=== PATIENT | male | born 1975 | race African-American/Black ===

== ENCOUNTER 2017-09-24 16:35 | Inpatient (IN) | payer MEDICAID, SELFPAY ==
[2017-09-24 16:36] VITALS: BP 136/85; PULSE 87; RESP 16; TEMP 37; O2SAT 100; BMI 37.6
--- NOTE | 2017-09-24 16:59 | RAD_ITS ---
STUDY: X-RAY CHEST REASON FOR EXAM: Male, 42 years old. Medical clearance, no chest complaints TECHNIQUE: Single AP portable view of the chest. COMPARISON: None. FINDINGS: There are mild streaky fibrotic or atelectatic changes of the right lung base. There is no demonstrated pleural abnormality. Normal size heart. Normal mediastinum and michelle. Normal visualized pulmonary arteries. Normal visualized aortic arch and descending thoracic aorta. Normal visualized thoracic spine. Normal visualized ribs, clavicles, and shoulders. There is no demonstrated abnormality of the visualized soft tissue structures of the upper abdomen. RAD/Chest 1 View (Portable) IMPRESSION: Mild streaky fibrotic or atelectatic changes of the right lung base. Electronically Signed: Felipe Muñoz MD at 17:34 EDT , Service support ,
--- NOTE | 2017-09-24 17:01 | EKG12_ITS ---
Test Reason : GEN ILLNESS Blood Pressure : / mmHG Vent. Rate : 085 BPM Atrial Rate : 085 BPM P-R Int : 172 ms QRS Dur : 104 ms QT Int : 340 ms P-R-T Axes : 048 008 018 degrees QTc Int : 404 ms Normal sinus rhythm Poor R wave progression Nonspecific ST and T wave abnormality Abnormal ECG Confirmed by MANE DUKE, RUTHIE ([id number]), book or script editor BILL FERRARA ([id number]) on 09/26/2017 10:17:58 AM Referred By: CHUY/KATHI Confirmed By:RUTHIE GILLIAM MD
--- NOTE | 2017-09-24 17:06 | NURSING ---
NO OLD EKGS
[2017-09-24] MEDS: Ondansetron 4 MG/2 ML Vial IV (17:18)
[2017-09-24] MEDS: Dicyclomine 20 MG/2 ML Vial IM (17:18)
[2017-09-24 17:36] LABS: Absolute Lymphocyte Count 3.12 X10^3/ul (0.83-4.51); Absolute Neutrophil Count 3.9 X10^3/uL (2.0-7.7); Basophil# 0.02 X10^3/uL; Basophil% 0.3 % (0-1); Eosinophil# 0.11 X10^3/uL; Eosinophils% 1.5 % (0-5); Hemoglobin 11.9 g/dl (13.0-16.5); Lymphocyte # 3.12 X10^3/ul (4.0); Lymphocyte % 42.2 % (19-41); Mean Corp Hgb Conc 32.2 g/gl (32-36); Mean Corpuscular Hgb 24.2 pg (27.0-32.0); Mean Corpuscular Volume 75.4 fL (80-94); Mean Platelet Vol. 10.3 fl (6.2-12.0); Monocyte# 0.22 X10^3/uL; Neutrophil # 3.92 X10^3/uL (2.7-7.7); Neutrophil % 52.9 % (47-70); POSITIVE COUNT NO; POSITIVE DIFFERENTIAL NO; POSITIVE MORPHOLOGY NO; Platelet Count 369 K/mm3 (150-450); RBC Distribution Width CV 14.4 % (11.6-14.6); RBC Distribution Width SD 39.9 fl (35.1-43.9); Red Blood Count 4.91 M/mm3 (4.6-6.2); White Blood Count 7.4 K/mm3 (4.4-11.0)
[2017-09-24 17:51] LABS: ALB/GLOB Ratio 0.8 RATIO (0.9-2.4); AST(SGOT) 14 U/L (15-37); Alanine Aminotransfer ALT/SGPT 36 U/L (16-61); Albumin, Serum 3.9 g/dL (3.2-5.0); Alkaline Phosphatase 89 U/L (45-117); Anion Gap 9 (5-15); BUN 22 mg/dL (7-18); BUN/Creat Ratio 16.2 RATIO (10-20); Calcium,Total 9.5 mg/dL (8.5-10.1); Chloride 102 mmol/L (98-107); Creatinine, Serum 1.36 mg/dL (0.70-1.30); EST Glomerular Filtration Rate 61 mL/min (>60); Est Glom Filt Rate - Afr Amer 74 mL/min (>60); Globulin 5.2 g/dL (2.2-4.2); Glucose 267 mg/dL (74-106); Potassium 4.6 mmol/L (3.5-5.1); Protein, Total 9.1 g/dL (6.4-8.2); Sodium Level 135 mmol/L (136-145)
[2017-09-24 18:36] VITALS: RESP 16
--- NOTE | 2017-09-24 20:47 | HP.PCM_ITS ---
Problem List (1) Heroin addiction Status: Acute History of Present Illness Date of Admission: 09/24/17 Chief Complaint: heroine addiction The patient is a 41 year old male patient here for entry into the [facility] program. He has expressed interest in detoxification from heroine addiction. He has used heroine for the past seven years and has decided he is tired of it. He is anxious but denies chest pain or shortness of breath. Initial laboratory studies are unremarkable. Past Medical History Allergies shellfish derived Allergy (Verified 09/24/17 16:37) Angioedema Home Medications: Ambulatory Orders Medication Instructions Recorded Amlodipine [Norvasc] 5 mg PO DAILY 09/24/17 Citalopram [Celexa] 10 mg PO DAILY 09/24/17 Furosemide [Lasix] 40 mg PO DAILY 09/24/17 Insulin Lispro [Humalog] 40 unit SQ BID 09/24/17 Lisinopril [Zestril] 20 mg PO DAILY 09/24/17 Metformin HCl [Glucophage] 1,000 mg PO DAILY 09/24/17 Metoprolol Succinate [Toprol Xl] 50 mg PO DAILY 09/24/17 Smoking Status: Current every day smoker - *Family History Maternal History Items: No pertinent history Review of Systems Constitutional: Denies: Chills, Fever, Weight Change HEENT: Denies: Head Aches, Sinus Congestion, Sinus Drainage Cardiovascular: Denies: Chest Pain, Palpitations Respiratory: Denies: Cough, Shortness of breath at rest, Sputum production Gastrointestinal: Denies: Abdominal Pain, Nausea, Vomiting Genitourinary: Denies: Dysuria Musculoskeletal: Denies: Joint Pain, Joint Tenderness Skin: Denies: Rash, Wounds Neurological: Denies: Numbness, Tingling, Focal weakness Psychiatric: Reports: Anxiety. Denies: Depression, Homicidal Ideations, Suicidal Ideations Hematologic/ Lymphatic: Denies: Easy Bruising, Easy Bleeding VTE Information - Inpt Only VTE Present on Admission: No VTE Mechan Device Prophylaxis: None VTE Pharm Prophylaxis ordered?: Yes Patient Problems: Active and Suspected Problems Heroin addiction (Acute) - Physical Exam General: Alert, Oriented x3, Cooperative HEENT: Atraumatic, PERRLA, EOMI, Normocephalic Neck: Supple, No JVD, Negative Carotid Bruits Lungs: Clear to auscultation, Normal air movement Cardiovascular: Regular rate, No murmurs Abdomen: Bowel Sounds Present, Soft, Non Tender Extremities: No edema, Capillary Refill Less than 3 Seconds Skin: No rashes Musculoskeletal: No Tenderness to Palpation of Joints or Extremities Neurological: Neuro grossly intact Psych/Mental Status: Normal Affect, Appropriate Vital Signs Temp Pulse Resp BP Pulse Ox 98.6 F 87 16 136/85 H 100 09/24/17 16:36 09/24/17 16:36 09/24/17 18:36 09/24/17 16:36 09/24/17 16:36 Oxygen Delivery Method Room Air Weight: 270 lb Body Mass Index (BMI) 37.6 Laboratory Tests Past 24 Hrs 09/24/17 09/24/17 17:15 17:15 WBC 7.4 RBC 4.91 Hgb 11.9 L Hct 37.0 L MCV 75.4 L MCH 24.2 L MCHC 32.2 RDW 14.4 RDW Differential 39.9 Plt Count 369 MPV 10.3 Immature Gran % (Auto) 0.100 Neut % (Auto) 52.9 Lymph % (Auto) 42.2 H Terry % (Auto) 3.0 Eos % (Auto) 1.5 Baso % (Auto) 0.3 Absolute Neuts (auto) 3.9 Absolute Lymphs (auto) 3.12 Total Counted Not Reportable Sodium 135 L Potassium 4.6 Chloride 102 Carbon Dioxide 24.0 Anion Gap 9 BUN 22 H Creatinine 1.36 H Estim Creat Clear Calc 76.90 Est GFR (MDRD) Af Amer 74 Est GFR (MDRD) Non-Af 61 BUN/Creatinine Ratio 16.2 Glucose 267 H Calcium 9.5 Total Bilirubin 0.60 AST 14 L ALT 36 Alkaline Phosphatase 89 Troponin I < 0.015 Total Protein 9.1 H Albumin 3.9 Globulin 5.2 H Albumin/Globulin Ratio 0.8 L Assessment/Plan All Active Problems Heroin addiction (Acute) Plan - admit to general medical floor - consult [facility] - initiate narcotic withdrawal protocol - test for HIV and Hep B - LMWH for DVT prophylaxis - nicoderm patch q day- smoking cessation to be encouraged following heroine recovery Code Visit Inpatient E&M: 38825 Init Hosp L3
--- NOTE | 2017-09-24 20:52 | ED.VISSUMM ---
- ER Visit Summary Date of Service: 09/24/17 Chief Complaint: Opiate withdrawal History of Present Illness: The patient is a 41 M who meets criteria for opiate withdrawal. She is here with [facility] staff. He has no other symptoms other than nausea and vomiting and paresthesias, but he has a history of CHF and hypertension. Physical Examination: Not appear in acute distress. Moist mucous membranes, no obvious facial deformity No C-spine tenderness supple neck. Regular rate and rhythm without any obvious murmurs Clear lungs bilaterally speaking in full sentences without any obvious respiratory distress Abdomen soft and nontender no guarding or rebound Moves all extremities without any difficulty or pain. Skin does not show any obvious rashes or lesions, no trauma. Alert oriented ?3 with no gross focal deficit Emergency Department Course and Treatment: [Patient has an unremarkable workup and is medically cleared for detox. He received Bentyl and Zofran.] Disposition: [Admit to the hospital in stable condition] Impression: [Opiate withdrawal requesting detox] This note was generated with [employer] dictation software. It may contain incorrect words, spelling, and punctuation that were not noted in review of the chart prior to signing ED Disposition - Plan for ED Patient: Chief Complaint: General Illness Referrals: [facility] Doctor,Out of [Primary Care Provider] -
[2017-09-24 21:29] VITALS: BMI 36.8; BMI 36.9
[2017-09-24 21:52] VITALS: BP 133/88; PULSE 93; RESP 16; TEMP 37.4
[2017-09-24 22:00] LABS: Bedside Glucose 226 mg/dL (70-110)
[2017-09-24] MEDS: Insulin Lispro 100 UNIT/ML INSULN.PEN SC (22:09)
[2017-09-24] MEDS: cloNIDine HCl 0.1 MG Tablet PO (22:09)
[2017-09-24] MEDS: Buprenorphine HCl 2 MG TAB.SUBL SL (22:09)
[2017-09-24] MEDS: chlordiazePOXIDE 25 MG Capsule PO (22:09)
[2017-09-24 23:11] LABS: HIV - WCH Non-Reactive (Nonreactive)
[2017-09-25] VITALS (7 sets, daily range): BP systolic 112–132; BP diastolic 73–83; PULSE 83–97; RESP 16–18; TEMP 36.2–37.6; O2SAT 100
[2017-09-25] MEDS: Pramipexole Di-HCl 0.25 MG Tablet PO (02:10)
[2017-09-25] MEDS: cloNIDine HCl 0.1 MG Tablet PO ×2 (02:10→21:25)
[2017-09-25] MEDS: Ondansetron ODT 4 MG Tablet 8 MG PO ×2 (02:10→09:50)
[2017-09-25] MEDS: Buprenorphine HCl 2 MG TAB.SUBL SL ×3 (05:52→21:17)
[2017-09-25 06:27] LABS: Anion Gap 11 (5-15); BUN 22 mg/dL (7-18); BUN/Creat Ratio 18.5 RATIO (10-20); Calcium,Total 9.7 mg/dL (8.5-10.1); Chloride 102 mmol/L (98-107); Creatinine, Serum 1.19 mg/dL (0.70-1.30); EST Glomerular Filtration Rate 72 mL/min (>60); Est Glom Filt Rate - Afr Amer 87 mL/min (>60); Estimated Creatinine Clearance 87.89 ml/min; Glucose 260 mg/dL (74-106); Potassium 4.5 mmol/L (3.5-5.1); Sodium Level 137 mmol/L (136-145)
[2017-09-25] MEDS: Insulin Lispro 100 UNIT/ML INSULN.PEN SC ×4 (07:15→21:16)
[2017-09-25 07:16] LABS: Bedside Glucose 284 mg/dL (70-110)
--- NOTE | 2017-09-25 09:26 | PCM.PROGNOTE ---
Patient Problems: Active and Suspected Problems Heroin addiction (Acute) Subjective: Chief complaint: Follow-up after admission for opioid withdrawal for medical stabilization. Patient seen and examined. No acute events overnight. He did report some improvement of his anxiety and restlessness. He reported mild abdominal cramps. Denied nausea vomiting. Denies constipation or diarrhea. Denied chest pain or shortness of breath. His vital signs are stable. - Physical Exam General: Alert, Oriented x3, Cooperative, No apparent distress HEENT: Atraumatic, PERRLA, EOMI, Normocephalic Oral: Moist Mucosa, No Gingival or Mucosal Lesions/ Ulcerations Neck: Supple, No JVD, Negative Carotid Bruits, Trachea Midline, Thyroid Normal Size and Texture Lungs: Clear to auscultation, No rhonchi, No wheeze, No rales, Diminished Cardiovascular: Regular rate, Regular Rhythm, Normal S1, Normal S2 Abdomen: Bowel Sounds Present, Soft, Non Tender, Non-Distended, No Hepato-splenomegaly Extremities: No clubbing, No cyanosis, No edema Skin: No rashes, No breakdown Lymphatic: No Cervical, Supraclavicular, or Inguinal Adenopathy Neurological: Cranial nerves II-XII grossly intact, Motor Exam 5/5 strength throughout Psych/Mental Status: Normal Affect, Appropriate, Alert and oriented to time, place, person, mood and affect Vital Signs Temp Pulse Resp BP Pulse Ox 98.7 F 87 16 130/73 H 100 09/25/17 05:56 09/25/17 05:56 09/25/17 05:56 09/25/17 05:56 09/24/17 16:36 Weight: 264 lb 4 oz Body Mass Index (BMI) 36.8 Intake and Output for Last 24 Hours 09/23/17 09/24/17 09/25/17 23:59 23:59 23:59 Intake Total 240 / 240 480 / 480 Balance 240 / 240 480 / 480 Laboratory Tests Past 24 Hrs 09/25/17 05:35 Sodium 137 Potassium 4.5 Chloride 102 Carbon Dioxide 24.0 Anion Gap 11 BUN 22 H Creatinine 1.19 Estim Creat Clear Calc 87.89 Est GFR (MDRD) Af Amer 87 Est GFR (MDRD) Non-Af 72 BUN/Creatinine Ratio 18.5 Glucose 260 H Calcium 9.7 POC Glucose 09/25/17 09/24/17 07:10 21:48 POC Glucose 284 H 226 H Medical Necessity - Tobacco Use Smoking Status: Current every day smoker Tobacco Use: Cigarettes Assessment/Plan All Active Problems Heroin addiction (Acute) This is a 41 years old male patient admitted because of acute opioid withdrawal for medical stabilization. #1 acute opiate withdrawal: He is on [facility] protocol with tapering course of Subutex, as needed Bentyl, Vistaril, Zofran and Mirapex. His vital signs stable. Patient reported some improvement of his symptoms. His routine blood work was remarkable for creatinine 4.26 on admission and it came down to 1.19 this morning, improved. His troponin is negative. Plan to potassium treatment. #2 type 2 diabetes mellitus: Change diet to ADA diet, continue Accu-Cheks, insulin sliding scale, continue metformin. #3 hypertension: Blood pressure stable, continue Norvasc, Catapres, lisinopril and metoprolol. #4 chronic congestive heart failure, unspecified: Patient is not sure what type of heart failure he has. He denies history of CAD, stents or CABG surgery in the past. At this time, CHF is clinically stable, compensated. Continue Lasix, lisinopril and metoprolol. #5 DVT prophylaxis: Subcu Lovenox. This note was generated with [employer] dictation software. It may contain incorrect words, spelling, and punctuation that were not noted in checking the note before signing. Code Visit Inpatient E&M: 08880 Subs Hosp L2
--- NOTE | 2017-09-25 09:33 | PN_ITS ---
Patient Problems: Active and Suspected Problems Heroin addiction (Acute) Subjective: Chief complaint: Follow-up after admission for opioid withdrawal for medical stabilization. Patient seen and examined. No acute events overnight. He did report some improvement of his anxiety and restlessness. He reported mild abdominal cramps. Denied nausea vomiting. Denies constipation or diarrhea. Denied chest pain or shortness of breath. His vital signs are stable. - Physical Exam General: Alert, Oriented x3, Cooperative, No apparent distress HEENT: Atraumatic, PERRLA, EOMI, Normocephalic Oral: Moist Mucosa, No Gingival or Mucosal Lesions/ Ulcerations Neck: Supple, No JVD, Negative Carotid Bruits, Trachea Midline, Thyroid Normal Size and Texture Lungs: Clear to auscultation, No rhonchi, No wheeze, No rales, Diminished Cardiovascular: Regular rate, Regular Rhythm, Normal S1, Normal S2 Abdomen: Bowel Sounds Present, Soft, Non Tender, Non-Distended, No Hepato- splenomegaly Extremities: No clubbing, No cyanosis, No edema Skin: No rashes, No breakdown Lymphatic: No Cervical, Supraclavicular, or Inguinal Adenopathy Neurological: Cranial nerves II-XII grossly intact, Motor Exam 5/5 strength throughout Psych/Mental Status: Normal Affect, Appropriate, Alert and oriented to time, place, person, mood and affect Vital Signs Temp Pulse Resp BP Pulse Ox 98.7 F 87 16 130/73 H 100 09/25/17 05:56 09/25/17 05:56 09/25/17 05:56 09/25/17 05:56 09/24/17 16:36 Weight: 264 lb 4 oz Body Mass Index (BMI) 36.8 Intake and Output for Last 24 Hours 09/23/17 09/24/17 09/25/17 23:59 23:59 23:59 Intake Total 240 / 240 480 / 480 Balance 240 / 240 480 / 480 Laboratory Tests Past 24 Hrs 09/25/17 05:35 Sodium 137 Potassium 4.5 Chloride 102 Carbon Dioxide 24.0 Anion Gap 11 BUN 22 H Creatinine 1.19 Estim Creat Clear Calc 87.89 Est GFR (MDRD) Af Amer 87 Est GFR (MDRD) Non-Af 72 BUN/Creatinine Ratio 18.5 Glucose 260 H Calcium 9.7 POC Glucose 09/25/17 09/24/17 07:10 21:48 POC Glucose 284 H 226 H Medical Necessity - Tobacco Use Smoking Status: Current every day smoker Tobacco Use: Cigarettes Assessment/Plan All Active Problems Heroin addiction (Acute) This is a 41 years old male patient admitted because of acute opioid withdrawal for medical stabilization. #1 acute opiate withdrawal: He is on [facility] protocol with tapering course of Subutex, as needed Bentyl, Vistaril, Zofran and Mirapex. His vital signs stable. Patient reported some improvement of his symptoms. His routine blood work was remarkable for creatinine 4.26 on admission and it came down to 1.19 this morning, improved. His troponin is negative. Plan to potassium treatment. #2 type 2 diabetes mellitus: Change diet to ADA diet, continue Accu-Cheks, insulin sliding scale, continue metformin. #3 hypertension: Blood pressure stable, continue Norvasc, Catapres, lisinopril and metoprolol. #4 chronic congestive heart failure, unspecified: Patient is not sure what type of heart failure he has. He denies history of CAD, stents or CABG surgery in the past. At this time, CHF is clinically stable, compensated. Continue Lasix , lisinopril and metoprolol. #5 DVT prophylaxis: Subcu Lovenox. This note was generated with [employer] dictation software. It may contain incorrect words, spelling, and punctuation that were not noted in checking the note before signing. Code Visit Inpatient E&M: 02215 Subs Hosp L2
[2017-09-25] MEDS: Metoprolol(XL)Succ 50 MG Tablet PO (09:50)
[2017-09-25] MEDS: Lisinopril 20 MG Tablet PO (09:50)
[2017-09-25] MEDS: Citalopram 10 MG Tablet PO (09:50)
[2017-09-25] MEDS: amLODIPine 5 MG Tablet PO (09:50)
[2017-09-25] MEDS: metFORMIN HCl 1,000 MG Tablet 1000 MG PO (09:50)
[2017-09-25] MEDS: Furosemide 40 MG Tablet PO (09:50)
[2017-09-25] MEDS: Enoxaparin 40 MG/0.4 ML Syringe SC (09:51)
[2017-09-25 12:05] LABS: Bedside Glucose 334 mg/dL (70-110)
[2017-09-25 17:05] LABS: Bedside Glucose 232 mg/dL (70-110)
[2017-09-25 21:26] LABS: Bedside Glucose 243 mg/dL (70-110)
[2017-09-26 02:00] VITALS: RESP 16
[2017-09-26 05:27] VITALS: RESP 16
[2017-09-26] MEDS: Buprenorphine HCl 2 MG TAB.SUBL SL ×2 (06:29→13:53)
[2017-09-26] MEDS: Insulin Lispro 100 UNIT/ML INSULN.PEN SC ×4 (06:32→22:19)
[2017-09-26 06:34] VITALS: BP 121/70; PULSE 82; RESP 16; TEMP 36.6; O2SAT 100
[2017-09-26 06:41] LABS: Bedside Glucose 236 mg/dL (70-110)
[2017-09-26] MEDS: metFORMIN HCl 1,000 MG Tablet 1000 MG PO ×2 (07:46→17:28)
--- NOTE | 2017-09-26 09:03 | PCM.PROGNOTE ---
Patient Problems: Active and Suspected Problems Heroin addiction (Acute) Subjective: Chief complaint: Follow-up after admission for opiate withdrawal for medical stabilization. Patient seen and examined. No acute events overnight. He denied any significant complaints, feeling better, less anxiety and restlessness. Denied abdominal pain, cramps or diarrhea. Denied chest pain or shortness of breath. Vital signs are stable. - Physical Exam General: Alert, Oriented x3, Cooperative, No apparent distress HEENT: Atraumatic, PERRLA, EOMI, Normocephalic Oral: Moist Mucosa, No Gingival or Mucosal Lesions/ Ulcerations Neck: Supple, No JVD, Negative Carotid Bruits, Trachea Midline, Thyroid Normal Size and Texture Lungs: Clear to auscultation, Normal air movement, No rhonchi, No wheeze, No rales Cardiovascular: Regular rate, Regular Rhythm, Normal S1, Normal S2, PMI Normal Abdomen: Bowel Sounds Present, Soft, Non Tender, Non-Distended, No Hepato-splenomegaly Extremities: No clubbing, No cyanosis, No edema Skin: No rashes, No breakdown Lymphatic: No Cervical, Supraclavicular, or Inguinal Adenopathy Neurological: Cranial nerves II-XII grossly intact, Neuro grossly intact Psych/Mental Status: Normal Affect, Appropriate, Alert and oriented to time, place, person, mood and affect Vital Signs Temp Pulse Resp BP Pulse Ox 97.9 F 82 16 121/70 H 100 09/26/17 06:34 09/26/17 06:34 09/26/17 06:34 09/26/17 06:34 09/26/17 06:34 Oxygen Delivery Method Room Air Weight: 264 lb 4.007 oz Body Mass Index (BMI) 36.8 Intake and Output for Last 24 Hours 09/24/17 09/25/17 09/26/17 23:59 23:59 23:59 Intake Total 240 / 240 1780 / 1780 680 / 680 Balance 240 / 240 1780 / 1780 680 / 680 POC Glucose 09/26/17 09/25/17 09/25/17 06:31 21:15 16:56 POC Glucose 236 H 243 H 232 H 09/25/17 12:01 POC Glucose 334 H Medical Necessity - Tobacco Use Smoking Status: Current every day smoker Tobacco Use: Cigarettes Assessment/Plan All Active Problems Heroin addiction (Acute) This is a 41 years old male patient admitted because of acute opioid withdrawal for medical stabilization. #1 acute opiate withdrawal: Symptoms improved, less anxious and restless. He is on [facility] protocol with tapering course of Subutex, as needed Bentyl, Vistaril, Zofran and Mirapex. His vital signs stable. Plan to continue same treatment, DC home tomorrow. #2 type 2 diabetes mellitus: Blood sugar has been in the range of 200, under reasonable control, continue ADA diet, continue Accu-Cheks, insulin sliding scale, continue metformin. #3 hypertension: Blood pressure stable, continue Norvasc, Catapres, lisinopril and metoprolol. #4 chronic congestive heart failure, unspecified: Patient is not sure what type of heart failure he has. He denies history of CAD, stents or CABG surgery in the past. At this time, CHF is clinically stable, compensated. Continue Lasix, lisinopril and metoprolol. #5 DVT prophylaxis: Subcu Lovenox. This note was generated with [employer] dictation software. It may contain incorrect words, spelling, and punctuation that were not noted in checking the note before signing. Code Visit Inpatient E&M: 80316 Subs Hosp L2
--- NOTE | 2017-09-26 09:06 | PN_ITS ---
Patient Problems: Active and Suspected Problems Heroin addiction (Acute) Subjective: Chief complaint: Follow-up after admission for opiate withdrawal for medical stabilization. Patient seen and examined. No acute events overnight. He denied any significant complaints, feeling better, less anxiety and restlessness. Denied abdominal pain, cramps or diarrhea. Denied chest pain or shortness of breath. Vital signs are stable. - Physical Exam General: Alert, Oriented x3, Cooperative, No apparent distress HEENT: Atraumatic, PERRLA, EOMI, Normocephalic Oral: Moist Mucosa, No Gingival or Mucosal Lesions/ Ulcerations Neck: Supple, No JVD, Negative Carotid Bruits, Trachea Midline, Thyroid Normal Size and Texture Lungs: Clear to auscultation, Normal air movement, No rhonchi, No wheeze, No rales Cardiovascular: Regular rate, Regular Rhythm, Normal S1, Normal S2, PMI Normal Abdomen: Bowel Sounds Present, Soft, Non Tender, Non-Distended, No Hepato- splenomegaly Extremities: No clubbing, No cyanosis, No edema Skin: No rashes, No breakdown Lymphatic: No Cervical, Supraclavicular, or Inguinal Adenopathy Neurological: Cranial nerves II-XII grossly intact, Neuro grossly intact Psych/Mental Status: Normal Affect, Appropriate, Alert and oriented to time, place, person, mood and affect Vital Signs Temp Pulse Resp BP Pulse Ox 97.9 F 82 16 121/70 H 100 09/26/17 06:34 09/26/17 06:34 09/26/17 06:34 09/26/17 06:34 09/26/17 06:34 Oxygen Delivery Method Room Air Weight: 264 lb 4.007 oz Body Mass Index (BMI) 36.8 Intake and Output for Last 24 Hours 09/24/17 09/25/17 09/26/17 23:59 23:59 23:59 Intake Total 240 / 240 1780 / 1780 680 / 680 Balance 240 / 240 1780 / 1780 680 / 680 POC Glucose 09/26/17 09/25/17 09/25/17 06:31 21:15 16:56 POC Glucose 236 H 243 H 232 H 09/25/17 12:01 POC Glucose 334 H Medical Necessity - Tobacco Use Smoking Status: Current every day smoker Tobacco Use: Cigarettes Assessment/Plan All Active Problems Heroin addiction (Acute) This is a 41 years old male patient admitted because of acute opioid withdrawal for medical stabilization. #1 acute opiate withdrawal: Symptoms improved, less anxious and restless. He is on [facility] protocol with tapering course of Subutex, as needed Bentyl, Vistaril, Zofran and Mirapex. His vital signs stable. Plan to continue same treatment, DC home tomorrow. #2 type 2 diabetes mellitus: Blood sugar has been in the range of 200, under reasonable control, continue ADA diet, continue Accu-Cheks, insulin sliding scale, continue metformin. #3 hypertension: Blood pressure stable, continue Norvasc, Catapres, lisinopril and metoprolol. #4 chronic congestive heart failure, unspecified: Patient is not sure what type of heart failure he has. He denies history of CAD, stents or CABG surgery in the past. At this time, CHF is clinically stable, compensated. Continue Lasix , lisinopril and metoprolol. #5 DVT prophylaxis: Subcu Lovenox. This note was generated with [employer] dictation software. It may contain incorrect words, spelling, and punctuation that were not noted in checking the note before signing. Code Visit Inpatient E&M: 47515 Subs Hosp L2
[2017-09-26 10:18] VITALS: PULSE 82
[2017-09-26] MEDS: Lisinopril 20 MG Tablet PO (10:18)
[2017-09-26] MEDS: Metoprolol(XL)Succ 50 MG Tablet PO (10:18)
[2017-09-26] MEDS: amLODIPine 5 MG Tablet PO (10:18)
[2017-09-26] MEDS: Furosemide 40 MG Tablet PO (10:18)
[2017-09-26] MEDS: Citalopram 10 MG Tablet PO (10:18)
[2017-09-26] MEDS: Enoxaparin 40 MG/0.4 ML Syringe SC (10:18)
[2017-09-26 11:41] LABS: Bedside Glucose 276 mg/dL (70-110)
--- NOTE | 2017-09-26 13:37 | CHAPLAIN ---
Type of Pastoral Visit _x__ Initial Visit ___ Follow-up Visit ___ On-call Visit ___ General Patient Visit ___ Spiritual Assessment ___ Family Conference ___ Bereavement ___ Rapid Response ___ Code Blue ___ Other (describe below) Pastoral Care Referral From _x__ Patient ___ Family ___ Nurse ___ Physician ___ Parasitology Teacher ___ Physician Assistant Primary Care ___ Other (describe below) Sacrament/Intervention ___ Active listening ___ Anointing ___ Orthodox ___ Bereavement ___ Communion ___ Jaleesa exploration ___ ___ Life review _x__ Prayer ___ Reconciliation ___ Sacrament of Sick _x__ Supportive presence ___ Wedding ___ Other (describe below) Pastoral Comments patient had very little to say; pt was polite and declared that he was feeling 'ok'; pt said that fishing boat captain could say a prayer for him but otherwise did not seek or request further support
[2017-09-26 13:51] VITALS: BP 117/82; PULSE 96; RESP 16; TEMP 37.6
[2017-09-26] MEDS: Dicyclomine 10 MG Capsule 20 MG PO (13:58)
[2017-09-26 15:47] LABS: Hep B Surface Antibodies Non Reactive (.)
[2017-09-26 17:01] LABS: Bedside Glucose 218 mg/dL (70-110)
[2017-09-26] MEDS: cloNIDine HCl 0.1 MG Tablet PO ×2 (17:31→22:14)
[2017-09-26 22:00] VITALS: BP 117/82; PULSE 96; RESP 16; TEMP 37.1
[2017-09-26 22:26] LABS: Bedside Glucose 155 mg/dL (70-110)
[2017-09-26] MEDS: hydrOXYzine PAM 25 MG Capsule 50 MG PO (22:28)
[2017-09-27] VITALS (7 sets, daily range): BP systolic 96–119; BP diastolic 55–69; PULSE 78–98; RESP 16; TEMP 36.7–37.2; O2SAT 98–100
[2017-09-27] MEDS: Buprenorphine HCl 2 MG TAB.SUBL SL (02:51)
[2017-09-27] MEDS: Insulin Lispro 100 UNIT/ML INSULN.PEN SC ×2 (06:53→11:25)
[2017-09-27 07:15] LABS: Bedside Glucose 190 mg/dL (70-110)
[2017-09-27] MEDS: metFORMIN HCl 1,000 MG Tablet 1000 MG PO (09:06)
[2017-09-27] MEDS: Citalopram 10 MG Tablet PO (09:06)
[2017-09-27] MEDS: Enoxaparin 40 MG/0.4 ML Syringe SC (09:07)
[2017-09-27] MEDS: Furosemide 40 MG Tablet PO (09:07)
[2017-09-27] MEDS: Lisinopril 20 MG Tablet PO (09:08)
[2017-09-27] MEDS: amLODIPine 5 MG Tablet PO (09:08)
[2017-09-27] MEDS: Metoprolol(XL)Succ 50 MG Tablet PO (09:08)
--- NOTE | 2017-09-27 09:12 | PCM.DC ---
- Discharge Diagnoses Current Active Problems: Current Active and Chronic Problems Heart failure, unspecified (Chronic) Hypertension (Chronic) Type 2 diabetes mellitus (Chronic) Heroin addiction (Acute) You will use the following diet at home:: Calorie/Carbohydrate Controlled (specify 1200, 1400, etc) - 1800 yasmany, Cardiac Your food should be the consistency of: Regular Discharge Activity: Return to Normal Activity Weight Bearing Status: Full weight bearing Call your doctor if you observe: Fever of 101 or Higher, Shortness of breath, Dizziness, Fainting spells, Chest pain, Increased palpitations (irregular heartbeat), Uncontrolled pain Allergies/Adverse Reactions: Allergies shellfish derived Allergy (Verified 09/24/17 16:37) Angioedema Medications to take at Discharge Amlodipine [Norvasc] 5 mg PO DAILY 09/24/17 Citalopram [Celexa] 10 mg PO DAILY 09/24/17 Furosemide [Lasix] 40 mg PO DAILY 09/24/17 Lisinopril [Zestril] 20 mg PO DAILY 09/24/17 Metformin HCl [Glucophage] 1,000 mg PO DAILY 09/24/17 Metoprolol Succinate [Toprol Xl] 50 mg PO DAILY 09/24/17 Insulin Lispro Protamin/Lispro [Humalog Mix 75-25 Vial] 40 units SQ BIDCM 09/25/17 Primary Care Physician: Татьяна Owens,Out of [Primary Care Provider] - Please follow up with your Primary Care Physician in: 1 week. Test Results: Test results from this visit will be discussed in further detail at your follow-up appointment, if applicable.
[2017-09-27 11:35] LABS: Bedside Glucose 266 mg/dL (70-110)
--- NOTE | 2017-09-27 14:16 | PCM.DC.SUM ---
Discharge Date and Diagnosis Date of Admission: 09/24/17 Date of Discharge: 09/27/17 - Primary Discharge Diagnosis Acute opioid withdrawal admitted for medical stabilization. - Secondary Discharge Diagnosis Chronic Problems Heart failure, unspecified (Chronic) Hypertension (Chronic) Type 2 diabetes mellitus (Chronic) Hospital Course and Treatment Imaging Results: Clinical Impression(s) from Imaging Studies Chest X-Ray 09/24/17 16:59 IMPRESSION: Mild streaky fibrotic or atelectatic changes of the right lung base. Electronically Signed: Felipe Muñoz MD at 17:34 EDT , Service support , Operations: None Procedures: None Summary of Care Provided: Patient seen and examined on the day of discharge and appeared to be stable to be discharged home. He denies any more symptoms of withdrawal. His vital signs are stable. - Physical Exam General: Alert, Oriented x3, Cooperative, No apparent distress. HEENT: Atraumatic, PERRLA, EOMI. Neck: Supple, No JVD, Negative Carotid Bruits, Trachea Midline, Thyroid Normal. Lungs: Clear to auscultation, Normal air movement, No rhonchi, No wheeze, No rales. Cardiovascular: Regular rate, Regular Rhythm, Normal S1, Normal S2, PMI Normal. Abdomen: Bowel Sounds Present, Soft, Non Tender, Non-Distended, No Hepato-splenomegaly. Extremities: No clubbing, No cyanosis, No edema Skin: No rashes, No breakdown Neurological: Neuro grossly intact Vital Signs are stable. Hospital course: This is a 41 years old male patient admitted because of acute opioid withdrawal for medical stabilization. 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 He was admitted and started on [facility] protocol with tapering course of Subutex, as needed Bentyl, Vistaril, Zofran and Mirapex. His routine blood work was unremarkable. His vital signs were stable throughout admission. He did have history of chronic congestive heart failure that was stable without evidence of acute CHF. With above-mentioned treatment, patient symptoms improved, denies any more anxiety or restlessness. Patient discharged home in a stable medical condition, plan to follow-up with [facility] as outpatient, discharged on his chronic home medication without any changes, recommended follow-up with PCP in 1 week. Discharge Activity: Return to Normal Activity Weight Bearing Status: Full weight bearing Call your doctor if you observe: Fever of 101 or Higher, Shortness of breath, Dizziness, Fainting spells, Chest pain, Increased palpitations (irregular heartbeat), Uncontrolled pain Home Medications: Medications to take at Discharge Amlodipine [Norvasc] 5 mg PO DAILY 09/24/17 Citalopram [Celexa] 10 mg PO DAILY 09/24/17 Furosemide [Lasix] 40 mg PO DAILY 09/24/17 Lisinopril [Zestril] 20 mg PO DAILY 09/24/17 Metformin HCl [Glucophage] 1,000 mg PO DAILY 09/24/17 Metoprolol Succinate [Toprol Xl] 50 mg PO DAILY 09/24/17 Insulin Lispro Protamin/Lispro [Humalog Mix 75-25 Vial] 40 units SQ BIDCM 09/25/17 Primary Care Physician: Татьяна Owens,Out of [Primary Care Provider] - Please follow up with your Primary Care Physician in: 1 week. Disposition: Home Minutes spent on discharge:: 25 Patient Condition:: Stable Medical Necessity - Tobacco Use Smoking Status: Current every day smoker Tobacco Use: Cigarettes Meaningful Use Info Meaningful Use Diagnoses (Choose all that apply): None applicable Code Visit Inpatient E&M: 81606 Disch Hosp
--- NOTE | 2017-09-27 14:20 | DS.PCM_ITS ---
Discharge Date and Diagnosis Date of Admission: 09/24/17 Date of Discharge: 09/27/17 - Primary Discharge Diagnosis Acute opioid withdrawal admitted for medical stabilization. - Secondary Discharge Diagnosis Chronic Problems Heart failure, unspecified (Chronic) Hypertension (Chronic) Type 2 diabetes mellitus (Chronic) Hospital Course and Treatment Imaging Results: Clinical Impression(s) from Imaging Studies Chest X-Ray 09/24/17 16:59 IMPRESSION: Mild streaky fibrotic or atelectatic changes of the right lung base. Electronically Signed: Felipe Muñoz MD at 17:34 EDT , Service support , Operations: None Procedures: None Summary of Care Provided: Patient seen and examined on the day of discharge and appeared to be stable to be discharged home. He denies any more symptoms of withdrawal. His vital signs are stable. - Physical Exam General: Alert, Oriented x3, Cooperative, No apparent distress. HEENT: Atraumatic, PERRLA, EOMI. Neck: Supple, No JVD, Negative Carotid Bruits, Trachea Midline, Thyroid Normal. Lungs: Clear to auscultation, Normal air movement, No rhonchi, No wheeze, No rales. Cardiovascular: Regular rate, Regular Rhythm, Normal S1, Normal S2, PMI Normal. Abdomen: Bowel Sounds Present, Soft, Non Tender, Non-Distended, No Hepato- splenomegaly. Extremities: No clubbing, No cyanosis, No edema Skin: No rashes, No breakdown Neurological: Neuro grossly intact Vital Signs are stable. Hospital course: This is a 41 years old male patient admitted because of acute opioid withdrawal for medical stabilization. 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 He was admitted and started on [facility] protocol with tapering course of Subutex , as needed Bentyl, Vistaril, Zofran and Mirapex. His routine blood work was unremarkable. His vital signs were stable throughout admission. He did have history of chronic congestive heart failure that was stable without evidence of acute CHF. With above-mentioned treatment, patient symptoms improved, denies any more anxiety or restlessness. Patient discharged home in a stable medical condition, plan to follow-up with [facility] as outpatient, discharged on his chronic home medication without any changes, recommended follow-up with PCP in 1 week. Discharge Activity: Return to Normal Activity Weight Bearing Status: Full weight bearing Call your doctor if you observe: Fever of 101 or Higher, Shortness of breath, Dizziness, Fainting spells, Chest pain, Increased palpitations (irregular heartbeat), Uncontrolled pain Home Medications: Medications to take at Discharge Amlodipine [Norvasc] 5 mg PO DAILY 09/24/17 Citalopram [Celexa] 10 mg PO DAILY 09/24/17 Furosemide [Lasix] 40 mg PO DAILY 09/24/17 Lisinopril [Zestril] 20 mg PO DAILY 09/24/17 Metformin HCl [Glucophage] 1,000 mg PO DAILY 09/24/17 Metoprolol Succinate [Toprol Xl] 50 mg PO DAILY 09/24/17 Insulin Lispro Protamin/Lispro [Humalog Mix 75-25 Vial] 40 units SQ BIDCM Primary Care Physician: Татьяна Owens,Out of [Primary Care Provider] - Please follow up with your Primary Care Physician in: 1 week. Disposition: Home Minutes spent on discharge:: 25 Patient Condition:: Stable Medical Necessity - Tobacco Use Smoking Status: Current every day smoker Tobacco Use: Cigarettes Meaningful Use Info Meaningful Use Diagnoses (Choose all that apply): None applicable Code Visit Inpatient E&M: 20912 Disch Hosp
== END 2017-09-27 12:45 | disposition home or self-care (01) | DRG 434 ==
LOC: ED 18:06 → MS3 21:10
PROVIDERS: Admitting Provider Family Medicine; Emergency Provider Emergency Medicine; Visit Provider Hospitalist
DX: F11.23 Opioid dependence with withdrawal (principal); I50.9 Heart failure, unspecified; I11.0 Hypertensive heart disease with heart failure; F17.210 Nicotine dependence, cigarettes, uncomplicated; E11.9 Type 2 diabetes mellitus without complications; Z79.84 Long term (current) use of oral hypoglycemic drugs
CPT/HCPCS: 36415; 71045; 80048; 80053; 82962; 84484; 85025; 86703; 86706; 93005; 99282; A4216; J2405